=== PATIENT | female | born 1960 | race Caucasian/White ===

== ENCOUNTER 2023-07-29 13:10 | Emergency (ER) | payer BC ==
[2023-07-29 14:01] VITALS: RESP 18
--- NOTE | 2023-07-29 14:30 | ED ---
ENT HPI - General Chief complaint: ENT Stated complaint: Lumo behind lest ear Time Seen by Provider: 07/29/23 13:16 Source: patient, RN notes reviewed Mode of arrival: ambulatory Limitations: no limitations - History of Present Illness Initial comments: 63-year-old female presents emergency department chief complaint of left ear pain. States there is swelling, pain behind her left ear she denies any trauma no drainage she states she has pain inside of her ear also. Patient denies any fevers or chills no prior issues like this before denies being a diabetic patient denies any drainage from her ear denies headache denies neck pain or neck stiffness - Related Data Previous Rx's Medication Instructions Recorded Amoxic-Pot Clav 875-125Mg 1 tab PO Q12HR #20 tab 07/29/23 [Augmentin 875-125] Allergies Allergy/AdvReac Type Severity Reaction Status Date / Time No Known Allergies Allergy Verified 07/29/23 13:28 Review of Systems ROS Statement: Those systems with pertinent positive or pertinent negative responses have been documented in the HPI. ROS Other: All systems not noted in ROS Statement are negative. Past Medical History Past Medical History: COPD, Diabetes Mellitus, Hyperlipidemia, Hypertension History of Any Multi-Drug Resistant Organisms: None Reported Additional Past Surgical History / Comment(s): vascular surgery left leg 2004 Past Psychological History: Anxiety Smoking Status: Current every day smoker Past Alcohol Use History: Daily Past Drug Use History: None Reported General Exam Limitations: no limitations General appearance: alert, in no apparent distress Head exam: Present: atraumatic, normocephalic, normal inspection Eye exam: Present: normal appearance, PERRL, EOMI. Absent: scleral icterus, conjunctival injection, periorbital swelling ENT exam: Present: normal oropharynx, mucous membranes moist. Absent: normal exam, normal external ear exam (Erythema, swelling and tenderness behind the left ear in the mastoid region) Neck exam: Present: normal inspection, full ROM. Absent: tenderness, meningism us, lymphadenopathy Respiratory exam: Present: normal lung sounds bilaterally. Absent: respiratory distress, wheezes, rales, rhonchi, stridor Neurological exam: Present: alert, oriented X3 Skin exam: Present: warm, dry, intact, normal color. Absent: rash Course Vital Signs 07/29/23 13:21 Temperature 98.4 F Pulse Rate 56 L Respiratory 18 Rate Blood Pressure 167/81 O2 Sat by Pulse 96 Oximetry Medical Decision Making - Medical Decision Making Was pt. sent in by a medical professional or institution ([facility], [facility], urgent care, hospital, or alf...) When possible be specific @ -No Did you speak to anyone other than the patient for history (EMS, parent, family, police, friend...)? What history was obtained from this source @ -No Did you review nursing and triage notes (agree or disagree)? Why? @ -I reviewed and agree with nursing and triage notes Were old charts reviewed (outside hosp., previous admission, EMS record, old EKG, old radiological studies, urgent care reports/EKG's, alf records)? Report findings @ -No old charts were reviewed Differential Diagnosis (chest pain, altered mental status, abdominal pain women, abdominal pain men, vaginal bleeding, weakness, fever, dyspnea, syncope, headache, dizziness, GI bleed, back pain, seizure, CVA, palpatations, mental health, musculoskeletal)? @ -Mastoiditis, lymphadenopathy, cellulitis, parotiditis, otitis media EKG interpreted by me (3pts min.). @ -None X-rays interpreted by me (1pt min.). @ -None done CT interpreted by me (1pt min.). @ -CT denies surgery, shows evidence of abnormal parotid gland swelling, possible mass and lymphadenopathy concerning for cancerous or infectious changes U/S interpreted by me (1pt. min.). @ -None done What testing was considered but not performed or refused? (CT, X-rays, U/S, lab s)? Why? @ -None What meds were considered but not given or refused? Why? @ -None Did you discuss the management of the patient with other professionals (professionals i.e. [facility], [employer], lab, RT, psych nurse, social service worker, compensation/benefits specialist, teacher, security public safety officer, director of casework)? Give summary @ -No Was smoking cessation discussed for >3mins.? @ -No Was critical care preformed (if so, how long)? @ -No Were there social determinants of health that impacted care today? How? (Homelessness, low income, unemployed, alcoholism, drug addiction, transportation, low edu. Level, literacy, decrease access to med. care, penitentiary, rehab)? @ -No Was there de-escalation of care discussed even if they declined (Discuss DNR or withdrawal of care, Hospice)? DNR status @ -No What co-morbidities impacted this encounter? (DM, HTN, Smoking, COPD, CAD, Cancer, CVA, ARF, Chemo, Hep., AIDS, mental health diagnosis, sleep apnea, morbid obesity)? @ -None Was patient admitted / discharged? Hospital course, mention meds given and route, prescriptions, significant lab abnormalities, going to OR and other pertinent info. @ -Discharge patient has wine and abnormal tissue to left parotid gland this may be related for infection versus cancer patient is given antibiotics will follow up with ENT she does understand along with family in the room that she needs to follow-up with ENT emergently and her primary care physician. We discussed possibility of possible cancer Undiagnosed new problem with uncertain prognosis? @ -No Drug Therapy requiring intensive monitoring for toxicity (Heparin, Nitro, Insulin, Cardizem)? @ -No Were any procedures done? @ -No Diagnosis/symptom? @ -Parotid gland mass, infection Acute, or Chronic, or Acute on Chronic? @ -Acute Uncomplicated (without systemic symptoms) or Complicated (systemic symptoms)? @ -Uncomplicated Side effects of treatment? @ -No Exacerbation, Progression, or Severe Exacerbation? @ -No Poses a threat to life or bodily function? How? (Chest pain, [place], [place], pneumonia, PE, COPD, DKA, ARF, appy, cholecystitis, CVA, Diverticulitis, Homicidal, Suicidal, threat to staff... and all critical care pts) @ -No Disposition Clinical Impression: Acute parotitis, Mass of parotid gland, Lymphadenopathy Disposition: HOME SELF-CARE Instructions (If sedation given, give patient instructions): Sialoadenitis (ED) Additional Instructions: Please return to the Emergency Department if symptoms worsen or any other concerns. Prescriptions: Amoxic-Pot Clav 875-125Mg [Augmentin 875-125] 1 tab PO Q12HR #20 tab Is patient prescribed a controlled substance at d/c from ED?: No Referrals: Amalia King MD [Primary Care Provider] - 1-2 days Ariel Anderson MD [STAFF PHYSICIAN] - 1-2 days Cr Villaseñor MD [STAFF PHYSICIAN] - 1-2 days Time of Disposition: 15:30
--- NOTE | 2023-07-29 14:55 | CT ---
EXAMINATION TYPE: CT mastoid wo con CT DLP: 328.5 mGycm, Automated exposure control for dose reduction was used. DATE OF EXAM: 07/29/2023 2:41 PM INDICATION: Patient age:Female; 63 years old; Reason for study: left sided pain; COMPARISON: None. TECHNIQUE: Multiple thin axial images were obtained through the temporal bones and internal auditory canals. Additional coronal reformatted images were obtained. No IV contrast was utilized. CT Contrast: Contrast used: mL of , none. FINDINGS: Right Temporal Bone: External Ear: The external auditory canal is unremarkable, The tympanic membrane is present and unrem arkable. Middle Ear: The ossicles demonstrate a normal appearance. Prussak's space is clear and the scutum i s intact. There is no evidence of osseous erosion and the tegmen tympani is intact. Inner Ear: Cochlea, vestibule and semi circular canals are unremarkable. No evidence of carotid raeann l dehiscence. Two and a half turns of the cochlea are identified. The vestibular aqueduct is not enl arged. Mastoid Air Cells: The mastoid air cells are clear. The tegmen mastoideum is intact. The aditus ad an trum is clear. Internal Auditory Canal: The internal auditory canal is unremarkable. Left Temporal Bone: External Ear: The external auditory canal is unremarkable, The tympanic membrane is present and unrem arkable. Middle Ear: The ossicles demonstrate a normal appearance. Prussak's space is clear and the scutum i s intact. There is no evidence of osseous erosion and the tegmen tympani is intact. Inner Ear: Cochlea, vestibule and semi circular canals are unremarkable. No evidence of carotid raeann l dehiscence. Two and a half turns of the cochlea are identified. The vestibular aqueduct is not enl arged. Mastoid Air Cells: The mastoid air cells are clear. The tegmen mastoideum is intact. The aditus ad an trum is clear. Internal Auditory Canal: The internal auditory canal is unremarkable. Other: Left superficial parotid gland lesion measuring 14 x 13 mm. Additionally there is a enlarged a symmetric left perimucosal component measuring 11 mm in short axis series 201 image 19. No definitive mucosal thickening visualized. Mild paranasal sinus mucosal thickening. IMPRESSION: 1. No evidence for middle ear or mastoid air cell effusion. 2. Left superficial parotid gland lesion measuring 14 x 13 mm evaluation with ultrasound and likely the need for tissue sampling is recommended. 3. Asymmetrically enlarged left mucosal lymph node. This raises a concern for malignancy until prove n otherwise. No evidence for mucosal thickening in the [id number]. ENT consultation recommended. C onsideration for PET/CT may be of benefit.
[2023-07-29] MEDS: ACET/COD 300 MG/30 MG STARTER PACK 6 TAB BTL PO STA (15:34)
[2023-07-29 15:41] VITALS: BP 123/60; PULSE 67; TEMP 98.2
== END 2023-07-29 15:36 | disposition home or self-care (01) ==
LOC: EC 13:10
DX: K11.21 Acute sialoadenitis (principal); R59.1 Generalized enlarged lymph nodes; F17.200 Nicotine dependence, unspecified, uncomplicated
CPT/HCPCS: 70486; 99283